=== PATIENT | male | born 1960 | race Caucasian/White ===

== ENCOUNTER 2022-09-19 08:54 | Outpatient (CLI) | payer MEDICARE, SELFPAY ==
--- NOTE | ~2022-09-19 | NM_ITS ---
EXAMINATION: NM bone scan whole body DATE: 09/19/2022 12:07 INDICATION: Malignant neoplasm of the prostate TECHNIQUE: 23.6 mCi Tc-99m HDP was administered intravenously. Delayed whole-body scintigrams were o btained. COMPARISON: There are no relevant imaging studies at our institution. FINDINGS/IMPRESSION: Typical pattern of likely degenerative joint centered uptake at the bilateral feet and ankles and at the left facet joints the mid cervical spine. No other suspicious foci of abnormal bone uptake to sug gest metastatic disease. Reviewed, dictated and finalized at location B.
== END 2022-09-19 08:55 | disposition home or self-care (01) ==
LOC: ANHIMG 09:01
PROVIDERS: Visit Provider Urology
DX: C61 Malignant neoplasm of prostate (principal)
CPT/HCPCS: 78306; A9503